=== PATIENT | female | born 1950 | race Caucasian/White ===

== ENCOUNTER → 2022-05-29 | Outpatient (CLI) | payer MEDICARE, OTHER ==
--- NOTE | 2022-05-29 10:12 | Diagnostic Imaging Report ---
PROCEDURE: MRI lumbar spine. TECHNIQUE: Multiplanar, multisequence MRI of the lumbar spine was performed without contrast. INDICATION: Right leg pain with radiation to lower back. COMPARISON: None. FINDINGS: For the purposes of this exam, the last well-formed disc space is denoted the L5-S1 level. Evaluation of static alignment shows mild dextroscoliotic deformity epicentered at the L3 level. There is also mild grade 1 anterolisthesis at L3-L4. There is no evidence of jumped facets. Vertebral body heights are maintained. There is no evidence of acute fracture. Evaluation of the marrow signal demonstrates fairly prominent Modic type I change involving the adjacent endplates at L3-L4. There is also multilevel intervertebral disc height loss, greatest at L2-L3 and L3-L4. The visualized portions of the distal cord are unremarkable. The conus terminates at approximately the L1-L2 level. No abnormal intrathecal filling defects are seen. Pre and paravertebral soft tissue structures are unremarkable. Axial images could not be obtained as the patient terminated the exam prematurely. Level by level degenerative changes are based on the sagittal views. L1-L2: There is no large disc bulge or focal protrusion. There is no significant spinal canal or neuroforaminal stenosis. L2-L3: There is a broad-based posterior disc bulge with bilateral ligamentum flavum laxity and facet arthropathy. As a result, there does appear to be at least moderate stenosis of the spinal canal and bilateral neural foramen. L3-L4: There is unroofing of the disc with a broad-based posterior disc bulge and asymmetric endplate osteophyte formations laterally to the left. There is also bilateral ligamentum flavum laxity and facet arthropathy. As a result, there is moderate stenosis of the spinal canal and asymmetric moderate to severe stenosis of the left neuroforamen with mild narrowing on the right. L4-L5: There is a broad-based posterior disc bulge with bilateral ligamentum flavum laxity and facet arthropathy. As a result, there is mild narrowing of the spinal canal and bilateral neural foramen. L5-S1: There is a broad-based posterior disc bulge with bilateral facet arthropathy. As a result, there is mild narrowing of the spinal canal and bilateral neural foramen. IMPRESSION: 1. Moderate multilevel degenerative changes of the lumbar spine, greatest at the L2-L3 and L3-L4 levels as above. 2. No acute fracture or dislocation. Dictated by: Dictated on workstation # [id number]
== END ==
LOC: RAD 08:45
DX: M47.816 Spondylosis without myelopathy or radiculopathy, lumbar region (principal); M47.817 Spondylosis without myelopathy or radiculopathy, lumbosacral region; M51.26 Other intervertebral disc displacement, lumbar region; M51.27 Other intervertebral disc displacement, lumbosacral region; M48.061 Spinal stenosis, lumbar region without neurogenic claudication; M48.07 Spinal stenosis, lumbosacral region
CPT/HCPCS: 72148